=== PATIENT | female | born 1965 | race Caucasian/White ===

== ENCOUNTER 2018-03-14 19:40 | Inpatient (IN) | payer MEDICARE, MEDICAID ==
[~2018-03-14] VITALS: Ht 160 cm; Wt 97.3 kg
[~2018-03-14 19:40] MED LIST: DIPH25CA85 PO
[2018-03-14 21:28] LABS: GLUCOSE,POINT OF CARE 111 MG/DL (70-110)
[2018-03-14 21:48] LABS: BASOPHILS % (AUTO) 0.5 % (0.0-2.0); EOSINOPHILS % (AUTO) 0.3 % (1.0-6.0); HEMATOCRIT 42.9 % (36-46); HEMOGLOBIN 14.8 g/dL (12.0-16.0); LYMPHOCYTES # (AUTO) 3.2 K/uL (1.0-4.8); MEAN CORPUSCULAR HEMOGLOBIN 29.9 pg (26.0-34.0); MEAN CORPUSCULAR HGB CONC 34.5 G/dL (31.0-37.0); MEAN CORPUSCULAR VOLUME 87 fL (80-100); MONOCYTES # (AUTO) 0.5 K/uL (0.1-1.0); MONOCYTES % (AUTO) 3.8 % (2.0-9.0); NEUTROPHILS # (AUTO) 8.9 K/uL (1.8-7.7); NEUTROPHILS % (AUTO) 70.4 % (40.0-70.0); PLATELET COUNT (AUTO) 501 K/uL (150-450); RED BLOOD CELL COUNT(AUTO) 4.95 MIL/uL (4.00-5.20); RED CELL DISTRIBUTION WIDTH 12.2 % (11.5-14.5)
[2018-03-14 21:49] LABS: AMPHET/METH SCREEN,URINE POSITIVE (NEGATIVE); BARBITURATE SCREEN, URINE NEGATIVE (NEGATIVE); BENZODIAZEPINES SCREEN,URINE NEGATIVE (NEGATIVE); CANNABINOID SCREEN,URINE POSITIVE (NEGATIVE); COCAINE SCREEN,URINE NEGATIVE (NEGATIVE); METHADONE SCREEN, URINE NEGATIVE (NEGATIVE); OPIATE SCREEN,URINE NEGATIVE (NEGATIVE)
[2018-03-14 21:50] LABS: PHENCYCLIDINE SCREEN,URINE NEGATIVE (NEGATIVE)
[2018-03-14 22:12] LABS: ANION GAP 10 mmol/L (8-16); CALCIUM, TOTAL 8.4 mg/dL (8.8-10.5); CARBON DIOXIDE 26 mmol/L (22-29); CHLORIDE 102 mmol/L (98-107); GLOMERULAR FILTR. RATE CALC > 60 mL/min (>60); GLUCOSE,RANDOM 111 mg/dL (70-110); POTASSIUM 4.2 mmol/L (3.5-5.1); SODIUM SERUM 138 mmol/L (136-145); UREA NITROGEN, BLOOD 8 mg/dL (7-18)
[2018-03-14 22:18] LABS: ALANINE AMINOTRANSFERASE 43 U/L (12-78); ALBUMIN 3.8 g/dL (3.4-5.0); ALKALINE PHOSPHATASE 98 U/L (46-116); ASPARTATE AMINOTRANSFERASE 32 U/L (15-37); BILIRUBIN,TOTAL 0.2 mg/dL (0.1-1.0); TOTAL PROTEIN, SERUM 8.5 g/dL (6.4-8.2)
[2018-03-14] MEDS ORDERED: LORazepam 2 MG TABLET PO ONE (22:30)
[2018-03-14] MEDS ORDERED: QUEtiapine FUMARATE 200 MG TABLET PO ONE (22:30)
[2018-03-14] MEDS ORDERED: LORazepam 2 MG TABLET PO PRN (23:00)
[2018-03-14] MEDS ORDERED: HALOPERIDOL 5 MG TABLET PO PRN (23:00)
[2018-03-15 05:03] LABS: HEMOGLOBIN A1C 6.5 % (4.5-6.2)
[2018-03-15 05:11] LABS: FREE T4 (FREE THYROXINE) 1.04 ng/dL (0.76-1.46); THYROID STIMULATING HORMONE 0.85 uIU/mL (0.36-3.74)
[2018-03-15 18:15] VITALS: BP 128/85
[2018-03-15] MEDS ORDERED: PNEUMOCOCCAL VACCINE POLYVALENT 0.5 ML VIAL [PPSV23] IM ONE (19:00)
[2018-03-15 19:15] VITALS: BP 133/89
[2018-03-15] MEDS ORDERED: GLUCAGON,HUMAN RECOMBINANT 1 MG VIAL IM PRN (19:15)
[2018-03-15] MEDS ORDERED: INSULIN LISPRO 100 UNITS/ML SQ PRN (19:15)
[2018-03-15 19:37] LABS: GLUCOMETER DEV NAME(LOC) BV3S 2; GLUCOSE,POINT OF CARE 144 MG/DL (70-110)
[2018-03-15 20:15] VITALS: BP 132/87
[2018-03-15] MEDS: OLANZapine 5 MG TABLET PO SCH (20:39)
[2018-03-15 21:15] VITALS: BP 140/89
[2018-03-16] VITALS (7 sets, daily range): BP systolic 122–147; BP diastolic 60–88
[2018-03-16] MEDS ORDERED: MetFORMIN HCL 500 MG TABLET PO SCH (07:00)
[2018-03-16 07:37] LABS: GLUCOMETER DEV NAME(LOC) BV3S 2; GLUCOSE,POINT OF CARE 98 MG/DL (70-110)
[2018-03-16] MEDS: FLUoxetine HCL 20 MG CAPSULE PO SCH (08:57)
[2018-03-16 17:33] LABS: GLUCOMETER DEV NAME(LOC) BV3S 2; GLUCOSE,POINT OF CARE 109 MG/DL (70-110)
[2018-03-16] MEDS: OLANZapine 5 MG TABLET PO SCH (20:45)
[2018-03-17] MEDS: ZOLPIDEM TARTRATE 10 MG TABLET PO PRN ×2 (00:08→21:47)
[2018-03-17 06:53] LABS: GLUCOMETER DEV NAME(LOC) BV3S 2; GLUCOSE,POINT OF CARE 93 MG/DL (70-110)
[2018-03-17 07:13] VITALS: BP 140/78
[2018-03-17 08:14] VITALS: BP 110/70
[2018-03-17] MEDS: MetFORMIN HCL 500 MG TABLET PO SCH (08:48)
[2018-03-17] MEDS: FLUoxetine HCL 20 MG CAPSULE PO SCH (08:48)
[2018-03-17 10:34] LABS: CHOL/HDL RATIO 4.9 (3.9-5.7); CHOLESTEROL 210 mg/dL (131-200); CREATINE KINASE MB 0.6 ng/mL (0-5); CREATINE KINASE, TOTAL 77 U/L (26-192); HDL CHOLESTEROL 43 mg/dL (40-60); LDL CHOL (CALC.) 117 mg/dL (0-130); TRIGLYCERIDES 250 mg/dL (15-150)
[2018-03-17 13:06] LABS: FOLATE SERUM 13.1 ng/mL (5.4-)
[2018-03-17 16:05] VITALS: BP 137/68
[2018-03-17 17:23] LABS: GLUCOMETER DEV NAME(LOC) BV3S 2; GLUCOSE,POINT OF CARE 95 MG/DL (70-110)
[2018-03-17] MEDS: OLANZapine 5 MG TABLET PO SCH (20:50)
[2018-03-18 06:14] VITALS: BP 118/72
[2018-03-18 06:34] LABS: GLUCOMETER DEV NAME(LOC) BV3S 2; GLUCOSE,POINT OF CARE 93 MG/DL (70-110)
[2018-03-18] MEDS: MetFORMIN HCL 500 MG TABLET PO SCH (08:55)
[2018-03-18] MEDS: FLUoxetine HCL 20 MG CAPSULE PO SCH (08:55)
[2018-03-18 14:25] VITALS: BP 100/63
[2018-03-18 16:08] VITALS: BP 135/77
[2018-03-18 16:18] LABS: GLUCOMETER DEV NAME(LOC) BV3S 2; GLUCOSE,POINT OF CARE 102 MG/DL (70-110)
[2018-03-18] MEDS: ZOLPIDEM TARTRATE 10 MG TABLET PO PRN (20:36)
[2018-03-18] MEDS: OLANZapine 5 MG TABLET PO SCH (20:36)
[2018-03-19 00:57] LABS: GLUCOMETER DEV NAME(LOC) BV3S 2; GLUCOSE,POINT OF CARE 98 MG/DL (70-110)
[2018-03-19 06:28] LABS: GLUCOMETER DEV NAME(LOC) BV3S 2; GLUCOSE,POINT OF CARE 115 MG/DL (70-110)
[2018-03-19 07:16] VITALS: BP 125/72
[2018-03-19 08:13] VITALS: BP 123/68
[2018-03-19] MEDS: MetFORMIN HCL 500 MG TABLET PO SCH (08:38)
[2018-03-19] MEDS: FLUoxetine HCL 20 MG CAPSULE PO SCH (08:38)
[2018-03-19] MEDS ORDERED: METF500T6 PO ×2 (09:50)
[2018-03-19] MEDS ORDERED: FLUO-191 PO (09:50)
[2018-03-19] MEDS ORDERED: PANT40TA25 PO (09:50)
[2018-03-19] MEDS ORDERED: OLAN5TAB2 PO (09:50)
== END 2018-03-19 10:50 | disposition home or self-care (01) | DRG 885 ==
LOC: EMS 19:40 → B3A 03-15 16:25
PROVIDERS: ADMIT Psychiatry & Neurology Psychiatry; ATTEND Psychiatry & Neurology Psychiatry
DX: F25.0 Schizoaffective disorder, bipolar type (principal); R45.851 Suicidal ideations; E11.9 Type 2 diabetes mellitus without complications; D72.829 Elevated white blood cell count, unspecified; E78.1 Pure hyperglyceridemia; E78.5 Hyperlipidemia, unspecified; R45.87 Impulsiveness; F41.9 Anxiety disorder, unspecified; G40.909 Epilepsy, unspecified, not intractable, without status epilepticus; I10 Essential (primary) hypertension; K21.9 Gastro-esophageal reflux disease without esophagitis; F12.90 Cannabis use, unspecified, uncomplicated; F15.90 Other stimulant use, unspecified, uncomplicated; Z91.14 Patient's other noncompliance with medication regimen; Z91.19 Patient's noncompliance with other medical treatment and regimen
CPT/HCPCS: 80074; 82306; 82607; 82746; 83036; 83735; 84439; 84443; 90471; 99285; G0480

== ENCOUNTER 2018-04-01 15:39 | Emergency (ER) | payer MEDICARE, MEDICAID ==
[~2018-04-01] VITALS: Ht 160 cm; Wt 95.9 kg
[~2018-04-01 15:39] MED LIST changes: -DIPH25CA85 PO; +FLUO-191 PO; +METF500T6 PO; +OLAN5TAB2 PO; +PANT40TA25 PO
[2018-04-01 15:40] VITALS: BP 144/88
[2018-04-01] MEDS ORDERED: RANI150T7 PO (15:46)
[2018-04-01] MEDS ORDERED: PSYL174P2 PEG (15:46)
[2018-04-01 15:53] LABS: GLUCOSE,POINT OF CARE 120 MG/DL (70-110)
== END 2018-04-01 16:30 | disposition left against medical advice (07) ==
LOC: EMS 15:40
DX: R73.9 Hyperglycemia, unspecified (principal); Z53.21 Procedure and treatment not carried out due to patient leaving prior to being seen by health care provider

== ENCOUNTER 2018-05-25 11:51 | Emergency (ER) | payer MEDICARE, OTHER ==
[~2018-05-25] VITALS: Ht 157.5 cm; Wt 97.7 kg
[~2018-05-25 11:51] MED LIST changes: -OLAN5TAB2 PO; -PANT40TA25 PO; +PSYL174P2 PEG; +RANI150T7 PO
[2018-05-25] MEDS ORDERED: HYDR25TA PO (11:53)
[2018-05-25] MEDS ORDERED: FAMO20 PO (11:53)
[2018-05-25 12:04] LABS: GLUCOSE,POINT OF CARE 170 MG/DL (70-110)
[2018-05-25] MEDS ORDERED: SODIUM CHLORIDE 0.9% 1,000 ML IV ONE (12:15)
[2018-05-25 12:45] LABS: BASOPHILS % (AUTO) 0.3 % (0.0-2.0); EOSINOPHILS % (AUTO) 0.1 % (1.0-6.0); HEMATOCRIT 41.8 % (36-46); HEMOGLOBIN 14.2 g/dL (12.0-16.0); LYMPHOCYTES % (AUTO) 27.8 % (22.0-44.0); MEAN CORPUSCULAR HEMOGLOBIN 29.4 pg (26.0-34.0); MEAN CORPUSCULAR VOLUME 87 fL (80-100); MONOCYTES # (AUTO) 0.6 K/uL (0.1-1.0); MONOCYTES % (AUTO) 5.3 % (2.0-9.0); NEUTROPHILS # (AUTO) 7.3 K/uL (1.8-7.7); NEUTROPHILS % (AUTO) 66.5 % (40.0-70.0); PLATELET COUNT (AUTO) 377 K/uL (150-450); RED BLOOD CELL COUNT(AUTO) 4.84 MIL/uL (4.00-5.20); RED CELL DISTRIBUTION WIDTH 13.3 % (11.5-14.5)
[2018-05-25 12:52] LABS: ANION GAP 9 mmol/L (8-16); CARBON DIOXIDE 26 mmol/L (22-29); CHLORIDE 100 mmol/L (98-107); CREATININE 1.65 mg/dL (0.60-1.30); GLOMERULAR FILTR. RATE CALC 32 mL/min (>60); GLUCOSE,RANDOM 183 mg/dL (70-110); POTASSIUM 3.8 mmol/L (3.5-5.1); SODIUM SERUM 135 mmol/L (136-145); UREA NITROGEN, BLOOD 12 mg/dL (7-18)
[2018-05-25 12:52] LABS: ABG A-A DIFF O2 29.6 mmHg (10-20.0); ABG BASE EXCESS 1.3 mmol/L (-2.0-3.0); ABG CARBOXYHEMOGLOBIN 1.3 % (0.0-1.5); ABG HCO3 25.8 mmol/L (22.0-26.0); ABG METHEMOGLOBIN 0.3 % (0.0-1.5); ABG OXYGEN CONTENT 18.1 mL/dL (15.0-23.0); ABG OXYHEMOGLOBIN 94.5 % (94.0-100.0); ABG PCO2 36 mmHg (35-45); ABG PH 7.462 (7.35-7.450); ABG TOTAL HEMOGLOBIN 13.6 G/dL (12.0-18.0); PO2, ARTERIAL BG 77.1 mmHg (84.0-92.0); SOURCE, BLOOD GAS ARTERIAL; TEMPERATURE, FAHRENHEIT, BG 98.6 FAHREN (96.0-98.6)
[2018-05-25 12:53] LABS: O2 DEVICE,BLOOD GAS ROOM AIR (ROOM AIR); SITE, BLOOD GAS RT RADIAL
[2018-05-25 13:00] LABS: SALICYLATE 2.6 mg/dL (2.8-20.0)
[2018-05-25] MEDS ORDERED: MAGNESIUM SULFATE 2 GM, MVI, ADULT NO.1 WITH VIT K 10 ML, THIAMINE HCL 100 MG, FOLIC AC... IV ONE ×5 (13:00)
[2018-05-25 13:02] LABS: ACETAMINOPHEN < 2 mcg/mL (10-30); ALANINE AMINOTRANSFERASE 37 U/L (12-78); ALBUMIN 3.6 g/dL (3.4-5.0); ALKALINE PHOSPHATASE 95 U/L (46-116); ASPARTATE AMINOTRANSFERASE 19 U/L (15-37); BILIRUBIN,TOTAL 0.3 mg/dL (0.1-1.0); CREATINE KINASE, TOTAL 73 U/L (26-192); TOTAL PROTEIN, SERUM 7.8 g/dL (6.4-8.2)
[2018-05-25 13:51] LABS: APPEARANCE,URINE CLEAR (CLEAR); BILIRUBIN,URINE NEGATIVE (NEGATIVE); GLUCOSE, URINE (UA) NEGATIVE (NEGATIVE); KETONES,URINE NEGATIVE (NEGATIVE); LEUKOCYTE ESTERASE ,URINE NEGATIVE (NEGATIVE); NITRATE,URINE NEGATIVE (NEGATIVE); OCCULT BLOOD,URINE NEGATIVE (NEGATIVE); PH,URINE 6.5 (5.0-8.0); PROTEIN,URINE NEGATIVE (NEGATIVE)
[2018-05-25 13:57] LABS: AMPHET/METH SCREEN,URINE POSITIVE (NEGATIVE); BARBITURATE SCREEN, URINE NEGATIVE (NEGATIVE); BENZODIAZEPINES SCREEN,URINE NEGATIVE (NEGATIVE); CANNABINOID SCREEN,URINE NEGATIVE (NEGATIVE); COCAINE SCREEN,URINE NEGATIVE (NEGATIVE); METHADONE SCREEN, URINE NEGATIVE (NEGATIVE); OPIATE SCREEN,URINE NEGATIVE (NEGATIVE); PHENCYCLIDINE SCREEN,URINE NEGATIVE (NEGATIVE)
[2018-05-25 15:03] VITALS: BP 115/68
== END 2018-05-25 15:06 | disposition home or self-care (01) ==
LOC: EMS 11:51
DX: R07.89 Other chest pain (principal); F41.9 Anxiety disorder, unspecified; F15.10 Other stimulant abuse, uncomplicated; F10.20 Alcohol dependence, uncomplicated; F17.210 Nicotine dependence, cigarettes, uncomplicated; E11.9 Type 2 diabetes mellitus without complications; K21.9 Gastro-esophageal reflux disease without esophagitis; I10 Essential (primary) hypertension; F20.9 Schizophrenia, unspecified; Z79.4 Long term (current) use of insulin; Z79.899 Other long term (current) drug therapy; Z98.51 Tubal ligation status; Z71.6 Tobacco abuse counseling
CPT/HCPCS: 36415; 71045; 80053; 80307; 81003; 82550; 82805; 82962; 83880; 84484; 85025; 85610; 85730; 93005; 96365; 96366; 99285; 99406; G0480 ×2; G0481; J3411; J3475; J3490 ×2; J7030

== ENCOUNTER 2018-05-27 12:16 | Emergency (ER) | payer MEDICARE, OTHER ==
[~2018-05-27] VITALS: Ht 157.5 cm; Wt 98.0 kg
[~2018-05-27 12:16] MED LIST changes: +FAMO20 PO; +HYDR25TA PO
[2018-05-27 12:29] LABS: GLUCOSE,POINT OF CARE 168 MG/DL (70-110)
[2018-05-27] MEDS ORDERED: KETOROLAC TROMETHAMINE 30 MG/ML VIAL IVP ONE (13:00)
[2018-05-27] MEDS ORDERED: SODIUM CHLORIDE 0.9% 1,000 ML IV ONE (13:00)
[2018-05-27 13:13] LABS: BASOPHILS % (AUTO) 0.4 % (0.0-2.0); EOSINOPHILS % (AUTO) 0.4 % (1.0-6.0); HEMATOCRIT 39.3 % (36-46); HEMOGLOBIN 13.2 g/dL (12.0-16.0); LYMPHOCYTES % (AUTO) 26.2 % (22.0-44.0); MEAN CORPUSCULAR HEMOGLOBIN 29.4 pg (26.0-34.0); MEAN CORPUSCULAR HGB CONC 33.6 G/dL (31.0-37.0); MEAN CORPUSCULAR VOLUME 88 fL (80-100); MONOCYTES # (AUTO) 0.5 K/uL (0.1-1.0); MONOCYTES % (AUTO) 6.5 % (2.0-9.0); NEUTROPHILS % (AUTO) 66.5 % (40.0-70.0); PLATELET COUNT (AUTO) 298 K/uL (150-450); RED BLOOD CELL COUNT(AUTO) 4.49 MIL/uL (4.00-5.20); RED CELL DISTRIBUTION WIDTH 12.9 % (11.5-14.5)
[2018-05-27 13:25] LABS: ANION GAP 9 mmol/L (8-16); CALCIUM, TOTAL 8.8 mg/dL (8.8-10.5); CARBON DIOXIDE 26 mmol/L (22-29); CHLORIDE 103 mmol/L (98-107); CREATININE 0.91 mg/dL (0.60-1.30); GLOMERULAR FILTR. RATE CALC > 60 mL/min (>60); GLUCOSE,RANDOM 161 mg/dL (70-110); POTASSIUM 3.6 mmol/L (3.5-5.1); SODIUM SERUM 138 mmol/L (136-145); UREA NITROGEN, BLOOD 8 mg/dL (7-18)
[2018-05-27 13:28] LABS: ALANINE AMINOTRANSFERASE 34 U/L (12-78); ALBUMIN 3.3 g/dL (3.4-5.0); ALKALINE PHOSPHATASE 87 U/L (46-116); ASPARTATE AMINOTRANSFERASE 17 U/L (15-37); BILIRUBIN,TOTAL 0.3 mg/dL (0.1-1.0); LIPASE 128 U/L (73-393); TOTAL PROTEIN, SERUM 7.3 g/dL (6.4-8.2)
[2018-05-27 14:06] VITALS: BP 128/72
== END 2018-05-27 14:39 | disposition home or self-care (01) ==
LOC: EMS 12:17
DX: R10.12 Left upper quadrant pain (principal); I10 Essential (primary) hypertension; K21.9 Gastro-esophageal reflux disease without esophagitis; E11.9 Type 2 diabetes mellitus without complications; F12.90 Cannabis use, unspecified, uncomplicated; F15.90 Other stimulant use, unspecified, uncomplicated; F17.210 Nicotine dependence, cigarettes, uncomplicated
CPT/HCPCS: 36415; 74176; 80053; 82962; 83690; 85025; 96374; 99285; 99406; J1885; J7030

== ENCOUNTER 2018-06-17 13:27 | Emergency (ER) | payer MEDICARE, OTHER ==
[~2018-06-17] VITALS: Ht 157.5 cm; Wt 99.1 kg
[2018-06-17] MEDS ORDERED: MAALOX/LIDOCAINE/NYSTATIN SUSP 5 ML ORAL.SYG MM ONE (14:45)
[2018-06-17 15:33] VITALS: BP 132/69
== END 2018-06-17 15:36 | disposition home or self-care (01) ==
LOC: EMS 13:30
DX: K14.6 Glossodynia (principal); F17.210 Nicotine dependence, cigarettes, uncomplicated; E11.9 Type 2 diabetes mellitus without complications; K21.9 Gastro-esophageal reflux disease without esophagitis; I10 Essential (primary) hypertension; F20.9 Schizophrenia, unspecified; F12.90 Cannabis use, unspecified, uncomplicated; F15.90 Other stimulant use, unspecified, uncomplicated; Z98.51 Tubal ligation status; Z79.84 Long term (current) use of oral hypoglycemic drugs
CPT/HCPCS: 99282; 99406

== ENCOUNTER 2018-06-27 08:37 | Emergency (ER) | payer MEDICARE, OTHER ==
[~2018-06-27] VITALS: Ht 157.5 cm; Wt 97.7 kg
[~2018-06-27 08:37] MED LIST changes: -FAMO20 PO; -FLUO-191 PO; +METF-960 PO; -METF500T6 PO; -PSYL174P2 PEG
[2018-06-27 08:50] VITALS: BP 135/90
[2018-06-27 08:54] LABS: GLUCOSE,POINT OF CARE 113 MG/DL (70-110)
== END 2018-06-27 09:15 | disposition home or self-care (01) ==
LOC: EMS 08:38
DX: L98.9 Disorder of the skin and subcutaneous tissue, unspecified (principal); E11.9 Type 2 diabetes mellitus without complications; K21.9 Gastro-esophageal reflux disease without esophagitis; I10 Essential (primary) hypertension; F20.9 Schizophrenia, unspecified; F17.210 Nicotine dependence, cigarettes, uncomplicated; F15.90 Other stimulant use, unspecified, uncomplicated; F12.90 Cannabis use, unspecified, uncomplicated; Z48.02 Encounter for removal of sutures; Z98.51 Tubal ligation status; Z79.84 Long term (current) use of oral hypoglycemic drugs
CPT/HCPCS: 99282

== ENCOUNTER 2018-07-29 16:26 | Emergency (ER) | payer OTHER ==
[~2018-07-29] VITALS: Ht 157.5 cm; Wt 81.8 kg
[2018-07-29] MEDS ORDERED: ATOR20TA86 PO (16:34)
[2018-07-29] MEDS ORDERED: AMOX TR/POT CLAV 875 MG/125 MG TABLET PO ONE (17:45)
[2018-07-29] MEDS ORDERED: KETOROLAC TROMETHAMINE 30 MG/ML VIAL IM ONE (17:45)
[2018-07-29 18:06] LABS: GLUCOSE,POINT OF CARE 103 MG/DL (70-110)
[2018-07-29 18:49] VITALS: BP 137/71
== END 2018-07-29 18:55 | disposition home or self-care (01) ==
LOC: EMS 16:28
DX: K14.0 Glossitis (principal); F17.210 Nicotine dependence, cigarettes, uncomplicated; F15.90 Other stimulant use, unspecified, uncomplicated; F12.90 Cannabis use, unspecified, uncomplicated; E11.9 Type 2 diabetes mellitus without complications; K21.9 Gastro-esophageal reflux disease without esophagitis; I10 Essential (primary) hypertension; F20.9 Schizophrenia, unspecified; G40.909 Epilepsy, unspecified, not intractable, without status epilepticus; Z98.51 Tubal ligation status; Z79.84 Long term (current) use of oral hypoglycemic drugs; Z79.899 Other long term (current) drug therapy
CPT/HCPCS: 82962; 96372; 99283; 99406; J1885

== ENCOUNTER 2018-10-17 12:51 | Emergency (ER) | payer OTHER ==
[~2018-10-17] VITALS: Ht 160 cm; Wt 113.6 kg
[~2018-10-17 12:51] MED LIST changes: +ATOR20TA86 PO
[2018-10-17 13:03] LABS: GLUCOSE,POINT OF CARE 142 MG/DL (70-110)
[2018-10-17 14:11] LABS: BASOPHILS % (AUTO) 0.3 % (0.0-2.0); EOSINOPHILS % (AUTO) 0 % (1.0-6.0); HEMATOCRIT 44.1 % (36-46); HEMOGLOBIN 14.8 g/dL (12.0-16.0); LYMPHOCYTES # (AUTO) 1.2 K/uL (1.0-4.8); LYMPHOCYTES % (AUTO) 7.4 % (22.0-44.0); MEAN CORPUSCULAR HEMOGLOBIN 29.3 pg (26.0-34.0); MEAN CORPUSCULAR HGB CONC 33.5 G/dL (31.0-37.0); MEAN CORPUSCULAR VOLUME 87 fL (80-100); MONOCYTES # (AUTO) 0.7 K/uL (0.1-1.0); MONOCYTES % (AUTO) 4.5 % (2.0-9.0); NEUTROPHILS # (AUTO) 14.2 K/uL (1.8-7.7); PLATELET COUNT (AUTO) 352 K/uL (150-450); RED BLOOD CELL COUNT(AUTO) 5.06 MIL/uL (4.00-5.20); RED CELL DISTRIBUTION WIDTH 14.1 % (11.5-14.5)
[2018-10-17 14:12] LABS: NEUTROPHILS % (AUTO) 87.8 % (40.0-70.0)
[2018-10-17 14:13] LABS: APPEARANCE,URINE CLOUDY (CLEAR); BILIRUBIN,URINE NEGATIVE (NEGATIVE); GLUCOSE, URINE (UA) NEGATIVE (NEGATIVE); KETONES,URINE NEGATIVE (NEGATIVE); NITRATE,URINE NEGATIVE (NEGATIVE); OCCULT BLOOD,URINE TRACE (NEGATIVE); PROTEIN,URINE NEGATIVE (NEGATIVE); UROBILINOGEN,URINE 0.2 mg/dL (<=1.0)
[2018-10-17] MEDS ORDERED: LORazepam 2 MG/ML VIAL IVP ONE (14:15)
[2018-10-17] MEDS ORDERED: LevETIRAcetam 1,500 MG in DEXTROSE 5%-WATER 100 ML IV ONE (14:15)
[2018-10-17 14:19] LABS: ANION GAP 11 mmol/L (8-16); CALCIUM, TOTAL 8.7 mg/dL (8.8-10.5); CARBON DIOXIDE 25 mmol/L (22-29); CHLORIDE 102 mmol/L (98-107); CREATININE 0.85 mg/dL (0.60-1.30); GLOMERULAR FILTR. RATE CALC > 60 mL/min (>60); GLUCOSE,RANDOM 126 mg/dL (70-110); POTASSIUM 3.4 mmol/L (3.5-5.1); SODIUM SERUM 138 mmol/L (136-145); UREA NITROGEN, BLOOD 11 mg/dL (7-18)
[2018-10-17 14:19] LABS: AMPHET/METH SCREEN,URINE NEGATIVE (NEGATIVE); BARBITURATE SCREEN, URINE NEGATIVE (NEGATIVE); BENZODIAZEPINES SCREEN,URINE NEGATIVE (NEGATIVE); CANNABINOID SCREEN,URINE POSITIVE (NEGATIVE); COCAINE SCREEN,URINE NEGATIVE (NEGATIVE); METHADONE SCREEN, URINE NEGATIVE (NEGATIVE); OPIATE SCREEN,URINE NEGATIVE (NEGATIVE); PHENCYCLIDINE SCREEN,URINE NEGATIVE (NEGATIVE)
[2018-10-17 14:24] LABS: ALANINE AMINOTRANSFERASE 174 U/L (12-78); ALBUMIN 3.7 g/dL (3.4-5.0); ALKALINE PHOSPHATASE 95 U/L (46-116); ASPARTATE AMINOTRANSFERASE 57 U/L (15-37); BILIRUBIN,TOTAL 0.3 mg/dL (0.1-1.0); TOTAL PROTEIN, SERUM 8.1 g/dL (6.4-8.2)
[2018-10-17 14:25] LABS: AMORPHOUS SEDIMENT,UR Moderate /LPF (None Seen); BACTERIA,URINE None Seen /HPF (None Seen); LEUKOCYTE ESTERASE ,URINE TRACE (NEGATIVE); RBC,URINE 0-2 /HPF (0-2); SQUAMOUS EPITHELIAL CELL,UR Few /LPF (None Seen); WBC,URINE 0-2 /HPF (0-5)
[2018-10-17] MEDS ORDERED: POTASSIUM CHLORIDE 10% 40 MEQ/30 ML LIQUID UDCUP PO ONE (15:15)
[2018-10-17 17:36] VITALS: BP 128/69
== END 2018-10-17 18:39 | disposition home or self-care (01) ==
LOC: EMS 12:52
DX: G40.909 Epilepsy, unspecified, not intractable, without status epilepticus (principal); E87.6 Hypokalemia; R79.89 Other specified abnormal findings of blood chemistry; E11.9 Type 2 diabetes mellitus without complications; K21.9 Gastro-esophageal reflux disease without esophagitis; I10 Essential (primary) hypertension; F20.9 Schizophrenia, unspecified; F17.210 Nicotine dependence, cigarettes, uncomplicated; F12.90 Cannabis use, unspecified, uncomplicated; Z98.51 Tubal ligation status; Z79.84 Long term (current) use of oral hypoglycemic drugs
CPT/HCPCS: 36415; 70450; 80053; 80307; 81001; 82962; 85025; 93005; 96365; 96366; 96375; 99285; G0480; J0712; J2060; J7060

== ENCOUNTER 2019-04-16 20:48 | Inpatient (IN) | payer OTHER, MEDICAID ==
[~2019-04-16] VITALS: Ht 162.6 cm; Wt 99.8 kg
[2019-04-16] MEDS ORDERED: FAMO20 PO (21:06)
[2019-04-16] MEDS ORDERED: CLON-570 PO (21:06)
[2019-04-16] MEDS ORDERED: LEVE500T53 PO (21:06)
[2019-04-16] MEDS ORDERED: NAPR-1025 PO (21:06)
[2019-04-16 21:18] LABS: BASOPHILS % (AUTO) 0.7 % (0.0-2.0); EOSINOPHILS % (AUTO) 1.2 % (1.0-6.0); HEMATOCRIT 44.2 % (36-46); HEMOGLOBIN 14.9 g/dL (12.0-16.0); LYMPHOCYTES # (AUTO) 3.9 K/uL (1.0-4.8); MEAN CORPUSCULAR HEMOGLOBIN 30.1 pg (26.0-34.0); MEAN CORPUSCULAR HGB CONC 33.7 G/dL (31.0-37.0); MEAN CORPUSCULAR VOLUME 89 fL (80-100); MONOCYTES # (AUTO) 0.5 K/uL (0.1-1.0); MONOCYTES % (AUTO) 5.7 % (2.0-9.0); NEUTROPHILS # (AUTO) 5.1 K/uL (1.8-7.7); NEUTROPHILS % (AUTO) 52.4 % (40.0-70.0); PLATELET COUNT (AUTO) 363 K/uL (150-450); RED BLOOD CELL COUNT(AUTO) 4.94 MIL/uL (4.00-5.20); RED CELL DISTRIBUTION WIDTH 12.6 % (11.5-14.5)
[2019-04-16 21:24] LABS: GLUCOSE,POINT OF CARE 149 MG/DL (70-110)
[2019-04-16 21:29] LABS: ANION GAP 12 mmol/L (8-16); CALCIUM, TOTAL 9.2 mg/dL (8.8-10.5); CARBON DIOXIDE 26 mmol/L (22-29); CHLORIDE 98 mmol/L (98-107); CREATININE 1.78 mg/dL (0.60-1.30); GLOMERULAR FILTR. RATE CALC 30 mL/min (>60); GLUCOSE,RANDOM 134 mg/dL (70-110); POTASSIUM 3.3 mmol/L (3.5-5.1); SODIUM SERUM 136 mmol/L (136-145); UREA NITROGEN, BLOOD 11 mg/dL (7-18)
[2019-04-16 21:36] LABS: TROPONIN I 0.04 ng/mL (0.00-0.05)
[2019-04-16 21:41] LABS: SALICYLATE < 2.8 mg/dL (2.8-20.0)
[2019-04-16 21:54] LABS: ALANINE AMINOTRANSFERASE 63 U/L (12-78); ALBUMIN 3.7 g/dL (3.4-5.0); ALKALINE PHOSPHATASE 83 U/L (46-116); ASPARTATE AMINOTRANSFERASE 38 U/L (15-37); BILIRUBIN,TOTAL 0.3 mg/dL (0.1-1.0); CREATINE KINASE, TOTAL ONLY 79 U/L (26-192); TOTAL PROTEIN, SERUM 7.9 g/dL (6.4-8.2)
[2019-04-16 21:55] LABS: ACETAMINOPHEN < 2 mcg/mL (10-30)
[2019-04-16 22:11] LABS: LACTIC ACID 3.3 mmol/L (0.4-2.0)
[2019-04-16] MEDS ORDERED: SODIUM CHLORIDE 0.9% 1,000 ML IV ONE (22:15)
[2019-04-16 22:18] LABS: INR 0.9 (0.9-1.1); PROTHROMBIN TIME 9.9 SEC (9.4-11.6)
[2019-04-16 23:26] LABS: ACETONE,BLOOD NEGATIVE (NEGATIVE)
[2019-04-17 00:40] LABS: AMPHET/METH SCREEN,URINE POSITIVE (NEGATIVE); APPEARANCE,URINE CLEAR (CLEAR); BARBITURATE SCREEN, URINE NEGATIVE (NEGATIVE); BENZODIAZEPINES SCREEN,URINE NEGATIVE (NEGATIVE); BILIRUBIN,URINE NEGATIVE (NEGATIVE); CANNABINOID SCREEN,URINE NEGATIVE (NEGATIVE); COCAINE SCREEN,URINE NEGATIVE (NEGATIVE); GLUCOSE, URINE (UA) NEGATIVE (NEGATIVE); KETONES,URINE NEGATIVE (NEGATIVE); LEUKOCYTE ESTERASE ,URINE NEGATIVE (NEGATIVE); METHADONE SCREEN, URINE NEGATIVE (NEGATIVE); NITRATE,URINE NEGATIVE (NEGATIVE); OCCULT BLOOD,URINE NEGATIVE (NEGATIVE); OPIATE SCREEN,URINE NEGATIVE (NEGATIVE); PH,URINE 6.5 (5.0-8.0); PHENCYCLIDINE SCREEN,URINE NEGATIVE (NEGATIVE); PROTEIN,URINE NEGATIVE (NEGATIVE); UROBILINOGEN,URINE 0.2 mg/dL (<=1.0)
[2019-04-17 00:54] LABS: CALCIUM, TOTAL 8.9 mg/dL (8.8-10.5); CREATININE 1.91 mg/dL (0.60-1.30); POTASSIUM 3.6 mmol/L (3.5-5.1)
[2019-04-17] MEDS ORDERED: ONDANSETRON HCL 4 MG/2 ML VIAL IVP ONE (01:00)
[2019-04-17] MEDS: LORazepam 2 MG TABLET PO PRN ×2 (04:28→15:17)
[2019-04-17 06:54] LABS: GLUCOMETER DEV NAME(LOC) BV2S.; GLUCOSE,POINT OF CARE 129 MG/DL (70-110)
[2019-04-17 06:57] VITALS: BP 130/81
[2019-04-17] MEDS ORDERED: ACETAMINOPHEN 325 MG TABLET PO PRN (07:00)
[2019-04-17] MEDS ORDERED: MAG HYDROX/AL HYDROX/SIMETH ES 30 ML SUSPENSION UDCUP PO PRN (07:00)
[2019-04-17] MEDS ORDERED: PETROLATUM,WHITE 28 GM JELLY TP PRN (07:00)
[2019-04-17] MEDS ORDERED: DOCUSATE SODIUM 100 MG CAPSULE PO PRN (07:00)
[2019-04-17] MEDS ORDERED: LOPERAMIDE HCL 2 MG CAPSULE PO PRN (07:00)
[2019-04-17] MEDS ORDERED: ALBUTEROL SULFATE HFA 90 MCG/PUFF 8 GM INHALER IH PRN (07:00)
[2019-04-17] MEDS ORDERED: CloNIDine HCL 0.1 MG TABLET PO PRN (07:00)
[2019-04-17] MEDS ORDERED: PNEUMOCOCCAL VACCINE POLYVALENT 0.5 ML VIAL [PPSV23] IM ONE (07:00)
[2019-04-17] MEDS ORDERED: NICOTINE 14 MG/24 HOUR PATCH TD PRN (07:00)
[2019-04-17] MEDS ORDERED: ONDANSETRON HCL 4 MG TABLET PO PRN (07:00)
[2019-04-17] MEDS ORDERED: GuaiFENesin/D-METHORPHAN [SUGAR-FREE] 200-20MG/10 ML SYRUP UDCUP PO PRN (07:00)
[2019-04-17] MEDS ORDERED: MAGNESIUM HYDROXIDE SUSPENSION 30 ML UDCUP PO PRN (07:00)
[2019-04-17 08:11] VITALS: BP 116/70
[2019-04-17 16:16] VITALS: BP 134/86
[2019-04-17] MEDS: OLANZapine 5 MG TABLET PO SCH (16:22)
[2019-04-17] MEDS: LevETIRAcetam 500 MG TABLET PO SCH (16:23)
[2019-04-17 16:49] LABS: GLUCOMETER DEV NAME(LOC) BV2S.; GLUCOSE,POINT OF CARE 122 MG/DL (70-110)
[2019-04-17 21:25] VITALS: BP 111/64
[2019-04-17] MEDS: GlipiZIDE 5 MG TABLET PO SCH (21:28)
[2019-04-17] MEDS: CloNIDine HCL 0.1 MG TABLET PO SCH (21:28)
[2019-04-17] MEDS: FAMOTIDINE 20 MG TABLET PO SCH (21:28)
[2019-04-18 00:03] VITALS: BP 124/76
[2019-04-18] MEDS: ZOLPIDEM TARTRATE 10 MG TABLET PO PRN (00:06)
[2019-04-18] MEDS: LORazepam 2 MG TABLET PO PRN ×2 (00:07→14:32)
[2019-04-18] MEDS: GlipiZIDE 5 MG TABLET PO SCH ×2 (06:28→16:31)
[2019-04-18 06:29] LABS: GLUCOMETER DEV NAME(LOC) BV2S.; GLUCOSE,POINT OF CARE 96 MG/DL (70-110)
[2019-04-18 07:32] LABS: CHOL/HDL RATIO 3.4 (3.9-5.7)
[2019-04-18 08:02] VITALS: BP 107/68
[2019-04-18] MEDS: LevETIRAcetam 500 MG TABLET PO SCH ×2 (08:28→16:31)
[2019-04-18] MEDS: FLUoxetine HCL 20 MG CAPSULE PO SCH (08:28)
[2019-04-18] MEDS: OLANZapine 5 MG TABLET PO SCH (08:28)
[2019-04-18 14:31] VITALS: BP 116/69
[2019-04-18] MEDS: HALOPERIDOL 5 MG TABLET PO PRN (14:32)
[2019-04-18 16:17] VITALS: BP 107/60
[2019-04-18 16:30] LABS: GLUCOMETER DEV NAME(LOC) BV2S.; GLUCOSE,POINT OF CARE 110 MG/DL (70-110)
[2019-04-18] MEDS: OLANZapine 10 MG TABLET PO SCH (16:31)
[2019-04-18 20:28] VITALS: BP 115/68
[2019-04-18] MEDS: CloNIDine HCL 0.1 MG TABLET PO SCH (20:30)
[2019-04-18] MEDS: FAMOTIDINE 20 MG TABLET PO SCH (20:30)
[2019-04-19 00:19] VITALS: BP 130/67
[2019-04-19 06:54] LABS: GLUCOMETER DEV NAME(LOC) BV2S.; GLUCOSE,POINT OF CARE 111 MG/DL (70-110)
[2019-04-19] MEDS: GlipiZIDE 5 MG TABLET PO SCH ×2 (07:11→16:34)
[2019-04-19 08:04] VITALS: BP 123/70
[2019-04-19] MEDS: OLANZapine 10 MG TABLET PO SCH ×2 (08:08→16:34)
[2019-04-19] MEDS: FLUoxetine HCL 20 MG CAPSULE PO SCH (08:08)
[2019-04-19] MEDS: LevETIRAcetam 500 MG TABLET PO SCH ×2 (08:08→16:34)
[2019-04-19] MEDS: LORazepam 2 MG TABLET PO PRN ×3 (12:35→22:39)
[2019-04-19 18:29] VITALS: BP 128/72
[2019-04-19] MEDS: IBUPROFEN 400 MG TABLET PO PRN (18:29)
[2019-04-19 18:49] LABS: GLUCOMETER DEV NAME(LOC) BV2S.; GLUCOSE,POINT OF CARE 128 MG/DL (70-110)
[2019-04-19 20:40] VITALS: BP 120/62
[2019-04-19] MEDS: FAMOTIDINE 20 MG TABLET PO SCH (20:44)
[2019-04-19] MEDS: ZOLPIDEM TARTRATE 10 MG TABLET PO PRN (20:44)
[2019-04-19] MEDS: CloNIDine HCL 0.1 MG TABLET PO SCH (20:44)
[2019-04-20 05:54] LABS: GLUCOMETER DEV NAME(LOC) BV2S.; GLUCOSE,POINT OF CARE 109 MG/DL (70-110)
[2019-04-20 06:06] VITALS: BP 108/64
[2019-04-20] MEDS: GlipiZIDE 5 MG TABLET PO SCH ×2 (06:36→16:36)
[2019-04-20] MEDS: OLANZapine 10 MG TABLET PO SCH ×2 (10:00→16:35)
[2019-04-20] MEDS: LevETIRAcetam 500 MG TABLET PO SCH ×2 (10:00→16:36)
[2019-04-20] MEDS: FLUoxetine HCL 20 MG CAPSULE PO SCH (10:00)
[2019-04-20 12:14] VITALS: BP 100/68
[2019-04-20] MEDS: HALOPERIDOL 5 MG TABLET PO PRN (14:24)
[2019-04-20] MEDS: LORazepam 2 MG TABLET PO PRN (14:24)
[2019-04-20 16:00] VITALS: BP 111/58
[2019-04-20 16:44] LABS: GLUCOMETER DEV NAME(LOC) BV2S.; GLUCOSE,POINT OF CARE 113 MG/DL (70-110)
[2019-04-20 19:29] VITALS: BP 129/85
[2019-04-20] MEDS: IBUPROFEN 400 MG TABLET PO PRN (19:29)
[2019-04-20] MEDS: FAMOTIDINE 20 MG TABLET PO SCH (20:15)
[2019-04-20] MEDS: CloNIDine HCL 0.1 MG TABLET PO SCH (20:15)
[2019-04-21 00:06] VITALS: BP 109/68
[2019-04-21] MEDS: ZOLPIDEM TARTRATE 10 MG TABLET PO PRN ×2 (01:24→21:35)
[2019-04-21] MEDS: LORazepam 2 MG TABLET PO PRN ×2 (01:24→19:15)
[2019-04-21] MEDS: GlipiZIDE 5 MG TABLET PO SCH ×2 (06:04→16:42)
[2019-04-21 06:29] LABS: GLUCOMETER DEV NAME(LOC) BV2S.; GLUCOSE,POINT OF CARE 114 MG/DL (70-110)
[2019-04-21 08:07] VITALS: BP 112/62
[2019-04-21] MEDS: LevETIRAcetam 500 MG TABLET PO SCH ×2 (09:23→16:42)
[2019-04-21] MEDS: OLANZapine 10 MG TABLET PO SCH ×2 (09:23→16:42)
[2019-04-21] MEDS: FLUoxetine HCL 20 MG CAPSULE PO SCH (09:24)
[2019-04-21 16:04] VITALS: BP 132/65
[2019-04-21 16:39] LABS: GLUCOMETER DEV NAME(LOC) BV2S.; GLUCOSE,POINT OF CARE 160 MG/DL (70-110)
[2019-04-21 20:31] VITALS: BP 141/85
[2019-04-21] MEDS: FAMOTIDINE 20 MG TABLET PO SCH (20:32)
[2019-04-21] MEDS: CloNIDine HCL 0.1 MG TABLET PO SCH (20:32)
[2019-04-22] MEDS: LORazepam 2 MG TABLET PO PRN ×2 (00:09→22:35)
[2019-04-22 01:03] VITALS: BP 119/70
[2019-04-22 06:44] LABS: GLUCOMETER DEV NAME(LOC) BV2S.; GLUCOSE,POINT OF CARE 99 MG/DL (70-110)
[2019-04-22] MEDS: GlipiZIDE 5 MG TABLET PO SCH ×2 (06:53→16:46)
[2019-04-22 08:24] VITALS: BP 117/71
[2019-04-22] MEDS: LevETIRAcetam 500 MG TABLET PO SCH ×2 (08:57→16:46)
[2019-04-22] MEDS: OLANZapine 10 MG TABLET PO SCH ×2 (08:57→16:46)
[2019-04-22] MEDS: FLUoxetine HCL 20 MG CAPSULE PO SCH (08:57)
[2019-04-22 16:29] VITALS: BP 110/66
[2019-04-22 16:30] VITALS: BP 110/66
[2019-04-22 16:54] LABS: GLUCOMETER DEV NAME(LOC) BV2S.; GLUCOSE,POINT OF CARE 127 MG/DL (70-110)
[2019-04-22 20:45] VITALS: BP 123/74
[2019-04-22] MEDS: CloNIDine HCL 0.1 MG TABLET PO SCH (20:47)
[2019-04-22] MEDS: FAMOTIDINE 20 MG TABLET PO SCH (20:47)
[2019-04-22] MEDS: ZOLPIDEM TARTRATE 10 MG TABLET PO PRN (20:47)
[2019-04-23 00:37] VITALS: BP 134/61
[2019-04-23] MEDS: GlipiZIDE 5 MG TABLET PO SCH ×2 (06:53→16:31)
[2019-04-23 07:04] LABS: ANION GAP 7 mmol/L (8-16); CALCIUM, TOTAL 9.2 mg/dL (8.8-10.5); CARBON DIOXIDE 27 mmol/L (22-29); CHLORIDE 105 mmol/L (98-107); CREATININE 0.76 mg/dL (0.60-1.30); GLOMERULAR FILTR. RATE CALC > 60 mL/min (>60); GLUCOSE,RANDOM 99 mg/dL (70-110); POTASSIUM 4.6 mmol/L (3.5-5.1); SODIUM SERUM 139 mmol/L (136-145); UREA NITROGEN, BLOOD 21 mg/dL (7-18)
[2019-04-23 07:13] LABS: GLUCOMETER DEV NAME(LOC) BV2S.; GLUCOSE,POINT OF CARE 96 MG/DL (70-110)
[2019-04-23 08:20] VITALS: BP 107/67
[2019-04-23] MEDS: OLANZapine 10 MG TABLET PO SCH ×2 (08:21→16:31)
[2019-04-23] MEDS: LevETIRAcetam 500 MG TABLET PO SCH ×2 (08:21→16:31)
[2019-04-23] MEDS: FLUoxetine HCL 20 MG CAPSULE PO SCH (08:21)
[2019-04-23 16:17] VITALS: BP 100/68
[2019-04-23 20:05] VITALS: BP 137/88
[2019-04-23] MEDS: FAMOTIDINE 20 MG TABLET PO SCH (20:08)
[2019-04-23] MEDS: LORazepam 2 MG TABLET PO PRN (20:08)
[2019-04-23] MEDS: CloNIDine HCL 0.1 MG TABLET PO SCH (20:08)
[2019-04-23 20:54] LABS: GLUCOMETER DEV NAME(LOC) BV2S.; GLUCOSE,POINT OF CARE 146 MG/DL (70-110)
[2019-04-23] MEDS: ZOLPIDEM TARTRATE 10 MG TABLET PO PRN (21:56)
[2019-04-23] MEDS: IBUPROFEN 400 MG TABLET PO PRN (22:27)
[2019-04-24] VITALS: BP 140/81
[2019-04-24] MEDS: LORazepam 2 MG TABLET PO PRN ×2 (00:15→13:54)
[2019-04-24 06:04] LABS: GLUCOMETER DEV NAME(LOC) BV2S.; GLUCOSE,POINT OF CARE 94 MG/DL (70-110)
[2019-04-24] MEDS: GlipiZIDE 5 MG TABLET PO SCH ×2 (07:00→16:26)
[2019-04-24 08:55] VITALS: BP 109/70
[2019-04-24] MEDS: LevETIRAcetam 500 MG TABLET PO SCH ×2 (08:55→16:26)
[2019-04-24] MEDS: FLUoxetine HCL 20 MG CAPSULE PO SCH (08:55)
[2019-04-24] MEDS: OLANZapine 10 MG TABLET PO SCH ×2 (08:55→16:26)
[2019-04-24] MEDS: HALOPERIDOL 5 MG TABLET PO PRN (13:54)
[2019-04-24 16:00] VITALS: BP 112/72
[2019-04-24 16:49] LABS: GLUCOMETER DEV NAME(LOC) BV2S.; GLUCOSE,POINT OF CARE 95 MG/DL (70-110)
[2019-04-24 20:20] VITALS: BP 140/72
[2019-04-24] MEDS: CloNIDine HCL 0.1 MG TABLET PO SCH (20:22)
[2019-04-24] MEDS: FAMOTIDINE 20 MG TABLET PO SCH (20:22)
[2019-04-24] MEDS: ZOLPIDEM TARTRATE 10 MG TABLET PO PRN (20:56)
[2019-04-25] MEDS: LORazepam 2 MG TABLET PO PRN ×2 (01:15→19:41)
[2019-04-25 01:16] VITALS: BP 135/76
[2019-04-25 06:15] LABS: GLUCOMETER DEV NAME(LOC) BV2S.; GLUCOSE,POINT OF CARE 100 MG/DL (70-110)
[2019-04-25] MEDS: GlipiZIDE 5 MG TABLET PO SCH ×2 (06:25→16:26)
[2019-04-25 08:02] LABS: APPEARANCE,URINE CLEAR (CLEAR); BILIRUBIN,URINE NEGATIVE (NEGATIVE); GLUCOSE, URINE (UA) NEGATIVE (NEGATIVE); KETONES,URINE NEGATIVE (NEGATIVE); LEUKOCYTE ESTERASE ,URINE NEGATIVE (NEGATIVE); NITRATE,URINE NEGATIVE (NEGATIVE); OCCULT BLOOD,URINE NEGATIVE (NEGATIVE); PH,URINE 7.5 (5.0-8.0); PROTEIN,URINE NEGATIVE (NEGATIVE); UROBILINOGEN,URINE 0.2 mg/dL (<=1.0)
[2019-04-25 08:08] VITALS: BP 117/68
[2019-04-25] MEDS: FLUoxetine HCL 20 MG CAPSULE PO SCH (09:02)
[2019-04-25] MEDS: OLANZapine 10 MG TABLET PO SCH ×2 (09:02→16:26)
[2019-04-25] MEDS: LevETIRAcetam 500 MG TABLET PO SCH ×2 (09:02→16:26)
[2019-04-25 09:12] LABS: BACTERIA,URINE None Seen /HPF (None Seen); RBC,URINE None Seen /HPF (0-2); WBC,URINE None Seen /HPF (0-5)
[2019-04-25 16:14] VITALS: BP 136/89
[2019-04-25] MEDS: GABAPENTIN 300 MG CAPSULE PO SCH (16:26)
[2019-04-25 17:14] LABS: GLUCOMETER DEV NAME(LOC) BV2S.; GLUCOSE,POINT OF CARE 151 MG/DL (70-110)
[2019-04-25 18:21] VITALS: BP 129/76
[2019-04-25] MEDS: IBUPROFEN 400 MG TABLET PO PRN (18:21)
[2019-04-25] MEDS: HALOPERIDOL 5 MG TABLET PO PRN (19:41)
[2019-04-25] MEDS: FAMOTIDINE 20 MG TABLET PO SCH (20:03)
[2019-04-25] MEDS: CloNIDine HCL 0.1 MG TABLET PO SCH (20:04)
[2019-04-26 00:02] VITALS: BP 115/60
[2019-04-26 06:29] LABS: GLUCOMETER DEV NAME(LOC) BV2S.; GLUCOSE,POINT OF CARE 103 MG/DL (70-110)
[2019-04-26] MEDS: GlipiZIDE 5 MG TABLET PO SCH ×2 (07:01→16:38)
[2019-04-26] MEDS: FLUoxetine HCL 20 MG CAPSULE PO SCH (08:22)
[2019-04-26] MEDS: OLANZapine 10 MG TABLET PO SCH ×2 (08:22→16:38)
[2019-04-26] MEDS: LevETIRAcetam 500 MG TABLET PO SCH ×2 (08:22→16:38)
[2019-04-26] MEDS: GABAPENTIN 300 MG CAPSULE PO SCH ×2 (08:23→16:38)
[2019-04-26 08:28] VITALS: BP 125/63
[2019-04-26] MEDS: LORazepam 2 MG TABLET PO PRN ×2 (10:26→20:10)
[2019-04-26] MEDS: HALOPERIDOL 5 MG TABLET PO PRN ×2 (10:26→20:10)
[2019-04-26 16:42] VITALS: BP 123/60
[2019-04-26 16:54] LABS: GLUCOMETER DEV NAME(LOC) BV2S.; GLUCOSE,POINT OF CARE 125 MG/DL (70-110)
[2019-04-26 20:10] VITALS: BP 122/88
[2019-04-26] MEDS: FAMOTIDINE 20 MG TABLET PO SCH (20:10)
[2019-04-26] MEDS: CloNIDine HCL 0.1 MG TABLET PO SCH (20:10)
[2019-04-26] MEDS: ZOLPIDEM TARTRATE 10 MG TABLET PO PRN (21:54)
[2019-04-27 00:30] VITALS: BP 126/73
[2019-04-27] MEDS: LORazepam 2 MG TABLET PO PRN ×3 (00:55→23:25)
[2019-04-27 06:29] LABS: GLUCOMETER DEV NAME(LOC) BV2S.; GLUCOSE,POINT OF CARE 113 MG/DL (70-110)
[2019-04-27] MEDS: GlipiZIDE 5 MG TABLET PO SCH ×2 (06:33→16:25)
[2019-04-27] MEDS: OLANZapine 10 MG TABLET PO SCH ×2 (08:51→16:25)
[2019-04-27] MEDS: FLUoxetine HCL 20 MG CAPSULE PO SCH (08:51)
[2019-04-27] MEDS: GABAPENTIN 300 MG CAPSULE PO SCH ×2 (08:51→16:25)
[2019-04-27] MEDS: LevETIRAcetam 500 MG TABLET PO SCH ×2 (08:51→16:25)
[2019-04-27 10:45] VITALS: BP 134/73
[2019-04-27 16:39] LABS: GLUCOMETER DEV NAME(LOC) BV2S.; GLUCOSE,POINT OF CARE 172 MG/DL (70-110)
[2019-04-27 17:08] VITALS: BP 119/75
[2019-04-27] MEDS: HALOPERIDOL 5 MG TABLET PO PRN (17:43)
[2019-04-27 20:24] VITALS: BP 112/72
[2019-04-27] MEDS: IBUPROFEN 400 MG TABLET PO PRN (20:24)
[2019-04-27] MEDS: ZOLPIDEM TARTRATE 10 MG TABLET PO PRN (20:30)
[2019-04-27] MEDS: FAMOTIDINE 20 MG TABLET PO SCH (20:30)
[2019-04-27] MEDS: CloNIDine HCL 0.1 MG TABLET PO SCH (20:30)
[2019-04-28 00:35] VITALS: BP 136/85
[2019-04-28] MEDS: GlipiZIDE 5 MG TABLET PO SCH ×2 (05:56→16:03)
[2019-04-28 06:10] LABS: GLUCOMETER DEV NAME(LOC) BV2S.; GLUCOSE,POINT OF CARE 121 MG/DL (70-110)
[2019-04-28] MEDS: FLUoxetine HCL 20 MG CAPSULE PO SCH (09:42)
[2019-04-28] MEDS: OLANZapine 10 MG TABLET PO SCH ×2 (09:42→16:02)
[2019-04-28] MEDS: LevETIRAcetam 500 MG TABLET PO SCH ×2 (09:42→16:02)
[2019-04-28] MEDS: GABAPENTIN 300 MG CAPSULE PO SCH ×2 (09:42→16:02)
[2019-04-28] MEDS ORDERED: LORazepam 2 MG/ML VIAL ONE (10:10)
[2019-04-28] MEDS ORDERED: HALOPERIDOL LACTATE 5 MG/ML VIAL ONE (10:11)
[2019-04-28] MEDS ORDERED: DiphenhydrAMINE HCL 50 MG/ML VIAL ONE (10:11)
[2019-04-28] MEDS ORDERED: LORazepam 2 MG/ML VIAL IM ONE (10:15)
[2019-04-28] MEDS ORDERED: HALOPERIDOL LACTATE 5 MG/ML VIAL IM ONE (10:15)
[2019-04-28] MEDS ORDERED: DiphenhydrAMINE HCL 50 MG/ML VIAL IM ONE (10:15)
[2019-04-28 16:09] LABS: GLUCOMETER DEV NAME(LOC) BV2S.; GLUCOSE,POINT OF CARE 96 MG/DL (70-110)
[2019-04-28 16:12] VITALS: BP 129/90
[2019-04-28] MEDS: LORazepam 2 MG TABLET PO PRN (19:42)
[2019-04-28] MEDS: FAMOTIDINE 20 MG TABLET PO SCH (20:12)
[2019-04-28] MEDS: CloNIDine HCL 0.1 MG TABLET PO SCH (20:12)
[2019-04-28] MEDS: ZOLPIDEM TARTRATE 10 MG TABLET PO PRN (20:41)
[2019-04-29 00:33] VITALS: BP 129/74
[2019-04-29] MEDS: GlipiZIDE 5 MG TABLET PO SCH ×2 (06:52→16:18)
[2019-04-29 06:54] LABS: GLUCOMETER DEV NAME(LOC) BV2S.; GLUCOSE,POINT OF CARE 85 MG/DL (70-110)
[2019-04-29 08:04] VITALS: BP 103/62
[2019-04-29] MEDS: GABAPENTIN 300 MG CAPSULE PO SCH ×2 (09:41→16:17)
[2019-04-29] MEDS: HALOPERIDOL 5 MG TABLET PO PRN (09:41)
[2019-04-29] MEDS: FLUoxetine HCL 20 MG CAPSULE PO SCH (09:42)
[2019-04-29] MEDS: LORazepam 2 MG TABLET PO PRN ×2 (09:42→16:18)
[2019-04-29] MEDS: LevETIRAcetam 500 MG TABLET PO SCH ×2 (09:42→16:17)
[2019-04-29] MEDS: OLANZapine 7.5 MG TABLET PO SCH (16:17)
[2019-04-29 16:18] VITALS: BP 130/73
[2019-04-29] MEDS: IBUPROFEN 400 MG TABLET PO PRN (16:18)
[2019-04-29 17:00] LABS: GLUCOMETER DEV NAME(LOC) BV2S.; GLUCOSE,POINT OF CARE 130 MG/DL (70-110)
[2019-04-29 20:10] VITALS: BP 116/61
[2019-04-29] MEDS: CloNIDine HCL 0.1 MG TABLET PO SCH (20:12)
[2019-04-29] MEDS: FAMOTIDINE 20 MG TABLET PO SCH (20:12)
[2019-04-30 06:25] VITALS: BP 111/66
[2019-04-30 06:44] LABS: GLUCOMETER DEV NAME(LOC) BV2S.; GLUCOSE,POINT OF CARE 109 MG/DL (70-110)
[2019-04-30] MEDS: GlipiZIDE 5 MG TABLET PO SCH ×2 (06:49→16:29)
[2019-04-30] MEDS: GABAPENTIN 300 MG CAPSULE PO SCH ×2 (08:05→16:28)
[2019-04-30] MEDS: LevETIRAcetam 500 MG TABLET PO SCH ×2 (08:06→16:29)
[2019-04-30] MEDS: FLUoxetine HCL 20 MG CAPSULE PO SCH (08:06)
[2019-04-30] MEDS: OLANZapine 7.5 MG TABLET PO SCH ×2 (08:06→16:28)
[2019-04-30] MEDS: LORazepam 2 MG TABLET PO PRN ×2 (08:06→17:43)
[2019-04-30 08:21] VITALS: BP 140/67
[2019-04-30] MEDS: IBUPROFEN 400 MG TABLET PO PRN (08:39)
[2019-04-30 16:12] VITALS: BP 129/69
[2019-04-30 17:09] LABS: GLUCOMETER DEV NAME(LOC) BV2S.; GLUCOSE,POINT OF CARE 146 MG/DL (70-110)
[2019-04-30] MEDS: FAMOTIDINE 20 MG TABLET PO SCH (21:16)
[2019-04-30] MEDS: ZOLPIDEM TARTRATE 10 MG TABLET PO PRN (21:18)
[2019-04-30] MEDS: CloNIDine HCL 0.1 MG TABLET PO SCH (21:22)
[2019-05-01 00:40] VITALS: BP 119/79
[2019-05-01] MEDS: GlipiZIDE 5 MG TABLET PO SCH ×2 (06:35→16:35)
[2019-05-01 06:49] LABS: GLUCOMETER DEV NAME(LOC) BV2S.; GLUCOSE,POINT OF CARE 103 MG/DL (70-110)
[2019-05-01 08:05] VITALS: BP 137/89
[2019-05-01] MEDS: GABAPENTIN 300 MG CAPSULE PO SCH ×2 (08:25→16:35)
[2019-05-01] MEDS: FLUoxetine HCL 20 MG CAPSULE PO SCH (08:25)
[2019-05-01] MEDS: OLANZapine 7.5 MG TABLET PO SCH ×2 (08:25→16:34)
[2019-05-01] MEDS: LevETIRAcetam 500 MG TABLET PO SCH ×2 (08:26→16:34)
[2019-05-01] MEDS: HALOPERIDOL 5 MG TABLET PO PRN (08:32)
[2019-05-01] MEDS: LORazepam 2 MG TABLET PO PRN ×2 (08:32→16:35)
[2019-05-01 16:16] VITALS: BP 118/69
[2019-05-01 16:59] LABS: GLUCOMETER DEV NAME(LOC) BV2S.; GLUCOSE,POINT OF CARE 135 MG/DL (70-110)
[2019-05-01] MEDS: FAMOTIDINE 20 MG TABLET PO SCH (20:02)
[2019-05-01 20:03] VITALS: BP 138/72
[2019-05-01] MEDS: CloNIDine HCL 0.1 MG TABLET PO SCH (20:03)
[2019-05-01] MEDS: IBUPROFEN 400 MG TABLET PO PRN (20:03)
[2019-05-01] MEDS: ZOLPIDEM TARTRATE 10 MG TABLET PO PRN (20:45)
[2019-05-02 05:41] VITALS: BP 121/79
[2019-05-02] MEDS: GlipiZIDE 5 MG TABLET PO SCH ×2 (06:33→16:34)
[2019-05-02 06:34] LABS: GLUCOMETER DEV NAME(LOC) BV2S.; GLUCOSE,POINT OF CARE 101 MG/DL (70-110)
[2019-05-02] MEDS: GABAPENTIN 300 MG CAPSULE PO SCH ×2 (08:01→16:34)
[2019-05-02] MEDS: LORazepam 2 MG TABLET PO PRN ×2 (08:01→16:34)
[2019-05-02] MEDS: FLUoxetine HCL 20 MG CAPSULE PO SCH (08:01)
[2019-05-02] MEDS: OLANZapine 7.5 MG TABLET PO SCH ×2 (08:01→16:34)
[2019-05-02] MEDS: LevETIRAcetam 500 MG TABLET PO SCH ×2 (08:01→16:34)
[2019-05-02 08:24] VITALS: BP 131/134
[2019-05-02 16:17] VITALS: BP 140/85
[2019-05-02 16:55] LABS: GLUCOMETER DEV NAME(LOC) BV2S.; GLUCOSE,POINT OF CARE 130 MG/DL (70-110)
[2019-05-02 18:40] VITALS: BP 132/82
[2019-05-02] MEDS: IBUPROFEN 400 MG TABLET PO PRN (18:40)
[2019-05-02 20:10] VITALS: BP 141/71
[2019-05-02] MEDS: ZOLPIDEM TARTRATE 10 MG TABLET PO PRN (20:14)
[2019-05-02] MEDS: FAMOTIDINE 20 MG TABLET PO SCH (20:14)
[2019-05-02] MEDS: CloNIDine HCL 0.1 MG TABLET PO SCH (20:14)
[2019-05-03 00:38] VITALS: BP 141/58
[2019-05-03 06:20] LABS: GLUCOMETER DEV NAME(LOC) BV2S.; GLUCOSE,POINT OF CARE 109 MG/DL (70-110)
[2019-05-03] MEDS: GlipiZIDE 5 MG TABLET PO SCH (06:59)
[2019-05-03 08:30] VITALS: BP 120/90
[2019-05-03] MEDS: GABAPENTIN 300 MG CAPSULE PO SCH (08:33)
[2019-05-03] MEDS: FLUoxetine HCL 20 MG CAPSULE PO SCH (08:33)
[2019-05-03] MEDS: LevETIRAcetam 500 MG TABLET PO SCH (08:33)
[2019-05-03] MEDS: OLANZapine 7.5 MG TABLET PO SCH (08:33)
[2019-05-03] MEDS ORDERED: FLUO-191 PO (08:43)
[2019-05-03] MEDS ORDERED: GLIP5 PO (08:43)
[2019-05-03] MEDS ORDERED: GABA-531 PO (08:43)
[2019-05-03] MEDS ORDERED: OLAN7.5T2 PO (08:43)
== END 2019-05-03 09:30 | disposition home or self-care (01) | DRG 885 ==
LOC: EMS 20:50 → B2S 04-17 04:30
PROVIDERS: ADMIT Psychiatry & Neurology Psychiatry; ATTEND Psychiatry & Neurology Psychiatry
DX: F33.2 Major depressive disorder, recurrent severe without psychotic features (principal); N17.9 Acute kidney failure, unspecified; R45.851 Suicidal ideations; K21.9 Gastro-esophageal reflux disease without esophagitis; E11.9 Type 2 diabetes mellitus without complications; I10 Essential (primary) hypertension; G40.909 Epilepsy, unspecified, not intractable, without status epilepticus; F12.90 Cannabis use, unspecified, uncomplicated; F20.9 Schizophrenia, unspecified; F17.210 Nicotine dependence, cigarettes, uncomplicated; K59.00 Constipation, unspecified; Z79.899 Other long term (current) drug therapy; Z91.5 Personal history of self-harm; T51.2X2A Toxic effect of 2-Propanol, intentional self-harm, initial encounter; Y92.89 Other specified places as the place of occurrence of the external cause
CPT/HCPCS: 83605; 90732; 93005; 96361; 96374; G0480; G0481; J1200; J1630; J2060; J2405; J7030; Q0162

== ENCOUNTER 2019-06-20 19:56 | Inpatient (IN) | payer OTHER, MEDICAID ==
[~2019-06-20] VITALS: Ht 162.6 cm; Wt 108.0 kg
[~2019-06-20 19:56] MED LIST changes: -ATOR20TA86 PO; +CLON-570 PO; +FAMO20 PO; +FLUO-191 PO; +GABA-531 PO; +GLIP5 PO; -HYDR25TA PO; +LEVE500T53 PO; -METF-960 PO; +OLAN7.5T2 PO; -RANI150T7 PO
[2019-06-20 20:50] LABS: GLUCOSE,POINT OF CARE 115 MG/DL (70-110)
[2019-06-20 21:40] LABS: BASOPHILS % (AUTO) 0.8 % (0.0-2.0); EOSINOPHILS % (AUTO) 1.1 % (1.0-6.0); HEMATOCRIT 38.6 % (36-46); HEMOGLOBIN 12.7 g/dL (12.0-16.0); LYMPHOCYTES # (AUTO) 2.6 K/uL (1.0-4.8); LYMPHOCYTES % (AUTO) 33.1 % (22.0-44.0); MEAN CORPUSCULAR HEMOGLOBIN 29.6 pg (26.0-34.0); MEAN CORPUSCULAR HGB CONC 32.9 G/dL (31.0-37.0); MEAN CORPUSCULAR VOLUME 90 fL (80-100); MONOCYTES # (AUTO) 0.4 K/uL (0.1-1.0); MONOCYTES % (AUTO) 5.3 % (2.0-9.0); NEUTROPHILS # (AUTO) 4.7 K/uL (1.8-7.7); NEUTROPHILS % (AUTO) 59.7 % (40.0-70.0); PLATELET COUNT (AUTO) 339 K/uL (150-450); RED BLOOD CELL COUNT(AUTO) 4.28 MIL/uL (4.00-5.20); RED CELL DISTRIBUTION WIDTH 12.5 % (11.5-14.5)
[2019-06-20 21:59] LABS: ANION GAP 15 mmol/L (8-16); CALCIUM, TOTAL 8.8 mg/dL (8.8-10.5); CARBON DIOXIDE 20 mmol/L (22-29); CHLORIDE 105 mmol/L (98-107); CREATININE 0.74 mg/dL (0.60-1.30); GLOMERULAR FILTR. RATE CALC > 60 mL/min (>60); GLUCOSE,RANDOM 128 mg/dL (70-110); POTASSIUM 3.6 mmol/L (3.5-5.1); SODIUM SERUM 140 mmol/L (136-145); UREA NITROGEN, BLOOD 13 mg/dL (7-18)
[2019-06-20 22:04] LABS: ALANINE AMINOTRANSFERASE 18 U/L (12-78); ALBUMIN 3.7 g/dL (3.4-5.0); ALKALINE PHOSPHATASE 78 U/L (46-116); ASPARTATE AMINOTRANSFERASE 12 U/L (15-37); BILIRUBIN,TOTAL 0.1 mg/dL (0.1-1.0); TOTAL PROTEIN, SERUM 7.5 g/dL (6.4-8.2)
[2019-06-20] MEDS ORDERED: HALOPERIDOL LACTATE 5 MG/ML VIAL IM ONE (22:15)
[2019-06-20] MEDS ORDERED: LORazepam 2 MG/ML VIAL IM ONE (22:15)
[2019-06-20] MEDS ORDERED: DiphenhydrAMINE HCL 50 MG/ML VIAL IM ONE (22:15)
[2019-06-21 02:55] LABS: AMPHET/METH SCREEN,URINE NEGATIVE (NEGATIVE); BARBITURATE SCREEN, URINE NEGATIVE (NEGATIVE); BENZODIAZEPINES SCREEN,URINE POSITIVE (NEGATIVE); CANNABINOID SCREEN,URINE NEGATIVE (NEGATIVE); COCAINE SCREEN,URINE NEGATIVE (NEGATIVE); METHADONE SCREEN, URINE NEGATIVE (NEGATIVE); OPIATE SCREEN,URINE NEGATIVE (NEGATIVE); PHENCYCLIDINE SCREEN,URINE NEGATIVE (NEGATIVE)
[2019-06-21] MEDS ORDERED: LORazepam 2 MG/ML VIAL IM ONE (05:00)
[2019-06-21] MEDS ORDERED: DiphenhydrAMINE HCL 50 MG/ML VIAL IM ONE (05:00)
[2019-06-21] MEDS ORDERED: HALOPERIDOL LACTATE 5 MG/ML VIAL IM ONE (05:00)
[2019-06-21] MEDS ORDERED: HALOPERIDOL 5 MG TABLET PO PRN (06:15)
[2019-06-21] MEDS ORDERED: ZOLPIDEM TARTRATE 10 MG TABLET PO PRN (06:15)
[2019-06-21 08:31] LABS: GLUCOSE,POINT OF CARE 113 MG/DL (70-110)
[2019-06-21] MEDS: LORazepam 2 MG TABLET PO PRN (09:32)
[2019-06-21] MEDS ORDERED: PETROLATUM,WHITE 28 GM JELLY TP PRN (14:45)
[2019-06-21] MEDS ORDERED: MAG HYDROX/AL HYDROX/SIMETH ES 30 ML SUSPENSION UDCUP PO PRN (14:45)
[2019-06-21] MEDS ORDERED: DOCUSATE SODIUM 100 MG CAPSULE PO PRN (14:45)
[2019-06-21] MEDS ORDERED: ALBUTEROL SULFATE HFA 90 MCG/PUFF 8 GM INHALER IH PRN (14:45)
[2019-06-21] MEDS ORDERED: ONDANSETRON HCL 4 MG TABLET PO PRN (14:45)
[2019-06-21] MEDS ORDERED: GuaiFENesin/D-METHORPHAN [SUGAR-FREE] 200-20MG/10 ML SYRUP UDCUP PO PRN (14:45)
[2019-06-21] MEDS ORDERED: LOPERAMIDE HCL 2 MG CAPSULE PO PRN (14:45)
[2019-06-21] MEDS ORDERED: ACETAMINOPHEN 325 MG TABLET PO PRN (14:45)
[2019-06-21] MEDS ORDERED: MAGNESIUM HYDROXIDE SUSPENSION 30 ML UDCUP PO PRN (14:45)
[2019-06-21] MEDS ORDERED: CloNIDine HCL 0.1 MG TABLET PO PRN (14:45)
[2019-06-21] MEDS ORDERED: IBUPROFEN 400 MG TABLET PO PRN (14:45)
[2019-06-21] MEDS ORDERED: NICOTINE 14 MG/24 HOUR PATCH TD PRN (14:45)
[2019-06-21 17:37] VITALS: BP 139/65
[2019-06-21] MEDS ORDERED: PNEUMOCOCCAL VACCINE POLYVALENT 0.5 ML VIAL [PPSV23] IM ONE (18:15)
[2019-06-21] MEDS: LevETIRAcetam 500 MG TABLET PO SCH (18:59)
[2019-06-21] MEDS: GlipiZIDE 5 MG TABLET PO SCH (18:59)
[2019-06-22] VITALS (12 sets, daily range): BP systolic 125–143; BP diastolic 63–94
[2019-06-22] MEDS: GlipiZIDE 5 MG TABLET PO SCH ×2 (06:42→16:41)
[2019-06-22] MEDS: LevETIRAcetam 500 MG TABLET PO SCH ×2 (08:25→16:44)
[2019-06-22] MEDS: LORazepam 2 MG TABLET PO PRN ×2 (08:25→13:11)
[2019-06-22 09:13] LABS: CHOL/HDL RATIO 3.6 (3.9-5.7)
[2019-06-22] MEDS ORDERED: LORazepam 2 MG TABLET PO PRN (10:15)
[2019-06-22] MEDS: FLUoxetine HCL 20 MG CAPSULE PO SCH (10:23)
[2019-06-22] MEDS: GABAPENTIN 300 MG CAPSULE PO SCH ×2 (10:23→16:44)
[2019-06-22] MEDS: OLANZapine 7.5 MG TABLET PO SCH ×2 (10:24→16:44)
[2019-06-22] MEDS: CloNIDine HCL 0.1 MG TABLET PO SCH ×2 (20:50→21:00)
[2019-06-22] MEDS: FAMOTIDINE 20 MG TABLET PO SCH ×2 (20:50→21:00)
[2019-06-23 01:50] VITALS: BP 130/80
[2019-06-23 05:50] VITALS: BP 139/90
[2019-06-23 06:03] VITALS: BP 139/90
[2019-06-23] MEDS ORDERED: LORazepam 2 MG TABLET PO PRN (07:00)
[2019-06-23] MEDS: GlipiZIDE 5 MG TABLET PO SCH ×2 (07:06→16:51)
[2019-06-23 08:16] VITALS: BP 133/89
[2019-06-23] MEDS: LORazepam 2 MG TABLET PO SCH ×5 (08:40→21:03)
[2019-06-23] MEDS: GABAPENTIN 300 MG CAPSULE PO SCH ×2 (08:40→17:01)
[2019-06-23] MEDS: OLANZapine 7.5 MG TABLET PO SCH ×2 (08:41→17:02)
[2019-06-23] MEDS: FLUoxetine HCL 20 MG CAPSULE PO SCH (08:41)
[2019-06-23] MEDS: LevETIRAcetam 500 MG TABLET PO SCH ×2 (08:41→17:01)
[2019-06-23 12:00] VITALS: BP 135/73
[2019-06-23 16:03] VITALS: BP 129/86
[2019-06-23] MEDS: FAMOTIDINE 20 MG TABLET PO SCH ×2 (21:00→21:07)
[2019-06-23] MEDS: CloNIDine HCL 0.1 MG TABLET PO SCH ×2 (21:00→21:07)
[2019-06-25] MEDS ORDERED: LORazepam 1 MG TABLET PO PRN (07:00)
[2019-06-25] MEDS ORDERED: LORazepam 1 MG TABLET PO SCH (09:00)
[2019-06-26] MEDS ORDERED: LORazepam 1 MG TABLET PO PRN (07:00)
== END 2019-06-23 21:10 | disposition home or self-care (01) | DRG 885 ==
LOC: EMS 19:57 → B3A 06-21 16:04
PROVIDERS: ADMIT Psychiatry & Neurology Child & Adolescent Psychiatry; ATTEND Psychiatry & Neurology Child & Adolescent Psychiatry
DX: F33.2 Major depressive disorder, recurrent severe without psychotic features (principal); R45.851 Suicidal ideations; E11.9 Type 2 diabetes mellitus without complications; F10.10 Alcohol abuse, uncomplicated; F12.90 Cannabis use, unspecified, uncomplicated; F20.9 Schizophrenia, unspecified; F17.210 Nicotine dependence, cigarettes, uncomplicated; G40.909 Epilepsy, unspecified, not intractable, without status epilepticus; I10 Essential (primary) hypertension; F19.10 Other psychoactive substance abuse, uncomplicated; K21.9 Gastro-esophageal reflux disease without esophagitis; Z91.5 Personal history of self-harm; Z71.41 Alcohol abuse counseling and surveillance of alcoholic; Z71.6 Tobacco abuse counseling; Z98.51 Tubal ligation status
CPT/HCPCS: 90732; 99291; G0480; J1200; J1630; J2060